=== PATIENT | female | born 1990 ===

== ENCOUNTER 2022-02-12 12:43 | Outpatient (CLI) | payer OTHER, SELFPAY ==
--- NOTE | 2022-02-12 13:00 | CRLHL7_ITS ---
For Patients: As a result of the Century Cures Act, medical imaging exams and procedure reports are released immediately into your electronic medical record. You may view this report before your referring provider. If you have questions, please contact your health care provider. INDICATION: First trimester scan, establish dates. COMPARISON: None. TECHNIQUE: Real-time polanco-scale imaging of the pelvis was performed. FINDINGS: Sonographic imaging demonstrates a single living intrauterine gestation. The embryo demonstrates a regular cardiac rate measuring 169 beats per minute. The embryo`s crown-rump length measurement of 2.4 cm corresponds to a gestational age of 9 weeks and 0 days with a sonographic due date of 09/17/2022. There is a normal-appearing yolk sac. There are no gross abnormalities noted within the embryo at this early state of development. The gestational sac has a normal appearance. There is no evidence of a perigestational hemorrhage. The amount of fluid within the sac appears appropriate for gestational age. The cervix is closed. The myometrium appears normal. Simple right ovarian cyst is present measuring 2.8 x 2.4 x 2.5 cm. The left ovary is not visualized. There are no suspicious fluid collections noted in the cul-de-sac. IMPRESSION: Single living intrauterine with sonographic gestational age 9 weeks 0 days and sonographic due date of 09/17/2022. Dictated by Ricki Pollock MD @ 02/12/2022 3:00:43 PM (Electronically Signed)
== END 2022-02-12 12:44 | disposition home or self-care (01) ==
LOC: US 12:47
PROVIDERS: Visit Provider Physician Assistant
DX: Z34.91 Encounter for supervision of normal pregnancy, unspecified, first trimester (principal); Z3A.09 9 weeks gestation of pregnancy
CPT/HCPCS: 76817

== ENCOUNTER 2022-02-12 14:57 | Outpatient (CLI) | payer OTHER, SELFPAY ==
[2022-02-12 18:12] LABS: Total Protein Urine 10 mg/dL
[2022-02-12 18:14] LABS: Creatinine Urine 48.5 mg/dL
[2022-02-12 18:15] LABS: Alanine Aminotransferase* 12 U/L (4-35); Aspartate Amino Transferase* 43 U/L (12-35); Blood Urea Nitrogen* 10 mg/dL (5-24); Creatinine* 0.5 mg/dL (0.5-1.5); Estimated Glomerular Filt Rate 129 ml/min
[2022-02-12 19:05] LABS: Hepatitis B Surface Antigen* Negative (Negative)
[2022-02-12 19:13] LABS: HIV 1/2/P24 Combo Screen* Negative (Negative)
[2022-02-12 19:22] LABS: Hepatitis C Virus Antibody* Negative (Negative)
[2022-02-12 21:00] LABS: Chlamydia DNA Amplified* NOT DETECTED (No Detected); GC DNA Amplified* NOT DETECTED (No Detected)
[2022-02-14 17:45] LABS: Rapid Plasma Reagin (RPR) Non Reactive (Non Reactive)
[2022-02-14 23:50] LABS: Rubella Antibody IgG 13.1 IU/mL
== END 2022-02-12 14:58 | disposition home or self-care (01) ==
LOC: NFLDREF 14:57
PROVIDERS: Visit Provider Physician Assistant
DX: Z34.91 Encounter for supervision of normal pregnancy, unspecified, first trimester (principal); Z3A.09 9 weeks gestation of pregnancy
CPT/HCPCS: 76817; 82565; 82570; 84156; 84450; 84460; 84520; 84550; 86592; 86703; 86762; 86803; 86850; 86900; 86901; 87086; 87340; 87491; 87591

== ENCOUNTER 2022-02-24 12:47 | Outpatient (CLI) | payer OTHER, SELFPAY ==
[2022-02-24 14:42] LABS: Total Protein Urine 12 mg/dL
[2022-02-24 14:43] LABS: Creatinine Urine 47.5 mg/dL
[2022-02-24 14:51] LABS: Collection Time Urine 24 Hours; Total Protein 24 Hour Urine 408 mg/dL; Total Volume 24 Hour Urine 3400 ml; Urine Creatinine mg/24 Hour 0 mg/Day
== END 2022-02-24 12:48 | disposition home or self-care (01) ==
PROVIDERS: Visit Provider Physician Assistant
DX: Z34.91 Encounter for supervision of normal pregnancy, unspecified, first trimester (principal)
CPT/HCPCS: 84156

== ENCOUNTER 2022-03-12 11:24 | Outpatient (CLI) | payer OTHER, SELFPAY ==
[2022-03-12 13:49] LABS: Aspartate Amino Transferase* 16 U/L (12-35)
== END 2022-03-12 11:25 | disposition home or self-care (01) ==
PROVIDERS: Visit Provider Obstetrics & Gynecology
DX: Z34.91 Encounter for supervision of normal pregnancy, unspecified, first trimester (principal); K76.0 Fatty (change of) liver, not elsewhere classified
CPT/HCPCS: 81420; 84450

== ENCOUNTER 2022-04-30 08:09 | Outpatient (CLI) | payer OTHER, SELFPAY ==
--- NOTE | 2022-04-30 08:15 | CRLHL7_ITS ---
For Patients: As a result of the Century Cures Act, medical imaging exams and procedure reports are released immediately into your electronic medical record. You may view this report before your referring provider. If you have questions, please contact your health care provider. INDICATION: Evaluate anatomy. COMPARISON: 02/12/2022 TECHNIQUE: Real time polanco scale imaging of the fetus was performed as well as color Doppler analysis of the umbilical vessels. FINDINGS: Sonographic imaging demonstrates a single living intrauterine gestation. Fetus demonstrates a regular cardiac rate of 171 beats per minute. Fetus has a vertex position. The placenta lies anteriorly without evidence of placenta previa. The edge of the placenta is located 8.7 cm from the internal cervical os. Amniotic fluid volume appears normal. Single deepest vertical pocket: 5.2 cm. The cervix is closed and measures 4.9 cm in length. The composite ultrasound gestational age is calculated at 20 weeks 1 day with an estimated sonographic due date of 09/16/2022. The estimated weight is 340 grams which lies at the 59th %. The following biometric measurements were obtained: Biparietal diameter: 4.6 cm/20 weeks 0 days 47th% Head circumference: 17.5 cm/20 weeks 0 days 42nd% Abdominal circumference: 14.7 cm/20 weeks 0 days 42nd% Femur length: 3.4 cm/20 weeks 5 days 65th% The HC/AC ratio measures: 1.19 range (1.07-1.25) On anatomic survey, there is a normal appearance of the cerebral ventricles, cavum septi pellucidi, cisterna magna and cerebellum. The nose, lips, and facial profile appear normal. The cervical, thoracic and lumbar spine are well visualized and appear normal. There is a normal four-chamber heart view and the left and right ventricular outflow tracts are difficult to visualize due to baby movement. The diaphragm and stomach appear normal. The kidneys and bladder also appear normal. There is a normal three-vessel cord and cord insertion site. The four extremities appear normal. IMPRESSION: Concordance of clinical and sonographic dating. Incomplete visualization of the LVOT and RVOT due to baby movement. Remainder of the anatomic survey is normal. Recommend short-term follow-up. Dictated by Ricki Pollock MD @ 04/30/2022 10:09:15 AM (Electronically Signed)
== END 2022-04-30 08:10 | disposition home or self-care (01) ==
LOC: US 08:09
PROVIDERS: Visit Provider Physician Assistant
DX: Z34.92 Encounter for supervision of normal pregnancy, unspecified, second trimester (principal); Z3A.20 20 weeks gestation of pregnancy
CPT/HCPCS: 76805

== ENCOUNTER 2022-05-20 08:45 | Outpatient (RCR) | payer OTHER, SELFPAY ==
--- NOTE | 2022-05-04 18:10 | OT.OPOE ---
OT Outpatient Ortho Eval OT Outpatient Ortho Eval Start: 05/04/22 16:58 Freq: Status: Active Protocol: Document 05/04/22 16:59 LCN (Rec: 05/04/22 17:28 LCN Desktop) E-signed By Estela Prado, OTR/L, CLT OT OP Ortho Eval Details Type Type Eval Complexity Low Insurance Information Insurance Information [facility] History/Precautions Current Condition/Medical Diagnosis Referring Provider Daiana Lewis PA-C Treatment Diagnosis B carpal tunnel syndrome Date of Onset 04/09/22 Medical Conditions HTN Other Conditions Pt is 20 weeks and has been having sx for the past 5 weeks. Has a history of CTS in B hands in early 2019, was considering surgery at that time, but it did resolve mostly by fall. 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 She is waking with shocks of numbness running in fingers, 2-3 night per week on alternating sides usually. Has some while bathing her 3 y/o daughter. Responds well to hot shower, will use an ice pack if she can not sleep, somewhat helpful. Splinting with [facility] wrist cock ups nightly. Not able to wear them while she uses power tools. Goniometric Comments Goniometric Comments Goniometric Comments AROM-- WR EX 55 of 70 stiffness in B hands. WR FL o -85 of 90 R (with provokation of sx) and 0-80 L. Pronation, RD and UD are WNL. Supination 0-80 of 90 B with R side sx provokation. Interface Analyst is 45# R and 26 # L German pinch is 20.5 R and 19 # L. 3 pt is 14 # R (provokation R hand) and 17# L. Durkan's at 15 sec with 4-5/ 10 intensity tingling, for R hand IF, resolves in 2 min and L hand 3-4/10 intensity ' fuzzy', similar onset, recovery. Edema Assessment Description Subjective Edema Description Tightness Additional Information Comments tight to squeeze fists tight, limit at end range of Hooked digt flexion. OT Objective Data Hand Hand Dominance Right Upper Extremity Special Tests Wrist Durkan's Test Positive Left,Positive Right Median Nerve-Carpal Tunnel Wrist Phalen Test Negative Left,Positive Right Wrist Tinel Test bilateral OT Problems Problems Problems Decreased Strength,Decreased Range of Motion,Decreased Fine Motor,Lifting,Gripping, Pinching Problems Comments Hands tire quickly while carrying heavy items for distances, chopping food, running powerl tools. Other Problems Writing,Opening Containers, Fasteners Patient Potential Excellent Assessment Assessment Assessment Given Marion's diagnosis of B carpal tunnel syndrome related to her and ? difficulty with edema, pain, ROM and strength loss of L hand/wrist/elbow , they would benefit from skilled OT to address these areas. Occupational Therapy Treatment Plan - OP Potential Rehabilitation Potential Excellent Set Goals Goals Set with Patient Yes Goals Goals In 8 weeks, pt will demonstrate:? 1) Decreased pn to <2/10 80% of the time with sustained gripping, carrying groceries, reading books and bathing her daughter. 2) I HEP for stretching, gradual strengthening and self mgmt strategies. 3) improved R talk show host strength to 40# and R 3 pt pinch to 10# with B hand pain < 1/10. 4)??Pt to be fit with functional bracing (for wrist stabilization) and use adaptive strategies to protect joint integrity to support less pain with ADL. Target Date 07/03/22 Progress set Treatment Plan Treatment Plan Evaluation,Edema Control, Iontophoresis,Joint Mobilization,Manual Therapy, Splinting,Ultrasound, Therapeutic Exercise,Self-Care /Home Management,Education Expected Frequency 1-2x Week Expected Duration 6-8 Weeks Certification Certification I Certify That: Therapy Services Provided, Therapy Plan Established, Therapy Plan Reviewed
== END 2022-09-11 17:46 | disposition home or self-care (01) ==
PROVIDERS: PCP Physician Assistant; Visit Provider Physician Assistant
DX: G56.00 Carpal tunnel syndrome, unspecified upper limb (principal); Z51.89 Encounter for other specified aftercare
CPT/HCPCS: 97033; 97035; 97110; 97140; 97165; 97535; X5282

== ENCOUNTER 2022-05-28 08:08 | Outpatient (CLI) | payer OTHER, SELFPAY ==
--- NOTE | 2022-05-28 08:15 | CRLHL7_ITS ---
For Patients: As a result of the Century Cures Act, medical imaging exams and procedure reports are released immediately into your electronic medical record. You may view this report before your referring provider. If you have questions, please contact your health care provider. INDICATION: heart views not well visualized previously COMPARISON: 04/30/2022 TECHNIQUE: Real time polanco scale imaging of the fetus was performed. FINDINGS: Sonographic imaging demonstrates a single living intrauterine gestation. Fetus demonstrates a regular cardiac rate of 165 beats per minute. Fetus has a vertex position. The placenta lies anteriorly. Amniotic fluid volume appears normal. Single deepest vertical pocket: 5.7 cm. There is a normal four-chamber heart view and the left and right ventricular outflow tracts appear normal. IMPRESSION: Normal heart structures. Dictated by Ricki Pollock MD @ 05/28/2022 9:01:27 AM (Electronically Signed)
== END 2022-05-28 08:09 | disposition home or self-care (01) ==
LOC: US 08:09
PROVIDERS: PCP Physician Assistant; Visit Provider Obstetrics & Gynecology
DX: Z34.82 Encounter for supervision of other normal pregnancy, second trimester (principal); Z3A.24 24 weeks gestation of pregnancy
CPT/HCPCS: 76816

== ENCOUNTER 2022-06-25 08:59 | Outpatient (CLI) | payer OTHER, SELFPAY ==
[2022-06-26 22:46] LABS: Rapid Plasma Reagin (RPR) Non Reactive (Non Reactive)
== END 2022-06-25 09:00 | disposition home or self-care (01) ==
LOC: NFLDREF 08:59
PROVIDERS: PCP Physician Assistant; Visit Provider Obstetrics & Gynecology
DX: Z34.90 Encounter for supervision of normal pregnancy, unspecified, unspecified trimester (principal)
CPT/HCPCS: 86592

== ENCOUNTER 2022-07-02 09:24 | Outpatient (CLI) | payer OTHER, SELFPAY ==
[2022-07-02 08:22] LABS: Glucose Fasting Check 85 mg/dl (60-115)
[2022-07-02 12:26] LABS: Glucose GTT-Gestational 3 Hr 121 mg/dl (70-140)
[2022-07-02 12:26] LABS: Glucose 1 Hour Gest 163 mg/dl (70-180)
== END 2022-07-02 09:25 | disposition home or self-care (01) ==
PROVIDERS: PCP Physician Assistant; Visit Provider Obstetrics & Gynecology
DX: R73.09 Other abnormal glucose (principal)
CPT/HCPCS: 82951; 82952

== ENCOUNTER 2022-07-08 09:50 | Outpatient (CLI) | payer OTHER, SELFPAY ==
--- NOTE | 2022-07-08 09:45 | CRLHL7_ITS ---
For Patients: As a result of the Century Cures Act, medical imaging exams and procedure reports are released immediately into your electronic medical record. You may view this report before your referring provider. If you have questions, please contact your health care provider. INDICATION: Third trimester scan, evaluate growth. Chronic Hypertension COMPARISON: 05/28/2022, 04/30/2022 TECHNIQUE: Real time polanco scale imaging of the fetus was performed. FINDINGS: Sonographic imaging demonstrates a single living intrauterine gestation. Fetus demonstrates a regular cardiac rate of 135 beats per minute. Fetus has a vertex position. The placenta lies right anterior. Amniotic fluid volume appears normal and there is a single deepest vertical pocket: 6.1 cm. The estimated weight is 1761gm which lies at the 88th %. On the prior OB ultrasound exam dated 04/30/2022 the estimated weight was at the 59th%. BPD 92nd percentile. HC 90th percentile. AC 90th percentile. FL 51st percentile. The HC/AC ratio measures 1.07 range (0.96-1.15). IMPRESSION: Sonographic gestational age 31 weeks 5 days and sonographic due date of 09/04/2022. Sonographic age is 13 days ahead of the clinical age. Estimated weight 88th percentile. Abdominal circumference 90th percentile. Dictated by Ricki Pollock MD @ 07/08/2022 10:49:02 AM (Electronically Signed)
== END 2022-07-08 09:51 | disposition home or self-care (01) ==
LOC: US 09:51
PROVIDERS: PCP Physician Assistant; Visit Provider Obstetrics & Gynecology
DX: O10.919 Unspecified pre-existing hypertension complicating pregnancy, unspecified trimester (principal)
CPT/HCPCS: 76816

== ENCOUNTER 2022-07-16 09:44 | Outpatient (CLI) | payer OTHER, SELFPAY ==
--- NOTE | 2022-07-16 09:45 | CRLHL7_ITS ---
For Patients: As a result of the Century Cures Act, medical imaging exams and procedure reports are released immediately into your electronic medical record. You may view this report before your referring provider. If you have questions, please contact your health care provider. INDICATION: chronic hypertension COMPARISON: 07/08/2022 TECHNIQUE: Real time polanco scale imaging of the fetus was performed. Without non-stress testing. FINDINGS: Sonographic imaging demonstrates a single living intrauterine gestation. Fetus demonstrates a regular cardiac rate of 133 beats per minute. Fetus has a vertex position. The amniotic fluid volume appears normal and there is a single deepest pocket measurement of 4.2 cm. The fetus was active and demonstrated normal breathing movements. There was normal flexion and extension of the trunk and extremities. IMPRESSION: Normal biophysical profile score of 8 out of 8. Dictated by Ricki Pollock MD @ 07/16/2022 10:40:56 AM (Electronically Signed)
== END 2022-07-16 09:45 | disposition home or self-care (01) ==
LOC: US 09:45
PROVIDERS: PCP Physician Assistant; Visit Provider Obstetrics & Gynecology
DX: O10.913 Unspecified pre-existing hypertension complicating pregnancy, third trimester (principal); Z3A.31 31 weeks gestation of pregnancy
CPT/HCPCS: 76819

== ENCOUNTER 2022-07-23 09:45 | Outpatient (CLI) | payer OTHER, SELFPAY ==
--- NOTE | 2022-07-23 09:45 | US_ITS ---
Final Report Patient: JUNIE BOWMAN Facility:?[facility] Patient ID:?[id number] Site Patient ID:?[id number]. Site :?[id number] Study:?US OB Pelvis BPP-07/23/2022 10:22:52 AM Ordering Physician:?UNKNOWN UNKNOWN Final Report: INDICATION: female. Hypertension. TECHNIQUE: Real-time polanco scale imaging of the fetus was performed. Without nonstress testing. COMPARISON: July 16, 2022. FINDINGS: Sonographic imaging demonstrates a single living intrauterine gestation. The fetus demonstrates a regular cardiac rate of 126 beats per minute. The fetus has a vertex position. The amniotic fluid volume appears normal and there is a single deepest pocket measurement of 6.3 cm. The fetus was active and demonstrated normal breathing movements. There was normal flexion and extension of the trunk and extremities. Anterior placenta. IMPRESSION: Normal biophysical profile score of 8/8. Dictated by Angelo Dodson MD @ 07/23/2022 10:28:34 AM (Electronic Signature)
== END 2022-07-23 09:46 | disposition home or self-care (01) ==
LOC: US 09:46
PROVIDERS: PCP Physician Assistant; Visit Provider Obstetrics & Gynecology
DX: O10.913 Unspecified pre-existing hypertension complicating pregnancy, third trimester (principal); Z3A.31 31 weeks gestation of pregnancy
CPT/HCPCS: 76819

== ENCOUNTER 2022-07-30 09:34 | Outpatient (CLI) | payer OTHER, SELFPAY ==
--- NOTE | 2022-07-30 09:45 | CRLHL7_ITS ---
For Patients: As a result of the Century Cures Act, medical imaging exams and procedure reports are released immediately into your electronic medical record. You may view this report before your referring provider. If you have questions, please contact your health care provider. INDICATION: Hypertension COMPARISON: 07/23/2022 TECHNIQUE: Real time polanco scale imaging of the fetus was performed. Without non-stress testing. FINDINGS: Sonographic imaging demonstrates a single living intrauterine gestation. Fetus demonstrates a regular cardiac rate of 157 beats per minute. Fetus has a vertex position. The amniotic fluid volume appears normal and there is a single deepest pocket measurement of 4.6 cm. The fetus was active and demonstrated normal breathing movements. There was normal flexion and extension of the trunk and extremities. IMPRESSION: Normal biophysical profile score of 8 out of 8. Dictated by Ricki Pollock MD @ 07/30/2022 2:26:22 PM (Electronically Signed)
== END 2022-07-30 09:35 | disposition home or self-care (01) ==
PROVIDERS: PCP Physician Assistant; Visit Provider Obstetrics & Gynecology
DX: O10.919 Unspecified pre-existing hypertension complicating pregnancy, unspecified trimester (principal)
CPT/HCPCS: 76819

== ENCOUNTER 2022-08-03 09:49 | Outpatient (CLI) | payer OTHER, SELFPAY ==
[2022-08-03 10:16] VITALS: PULSE 95; RESP 18; TEMP 36.9; O2SAT 99
[2022-08-03 10:17] VITALS: BP 120/68; PULSE 90
[2022-08-03 10:33] LABS: Appearance Urine Clear (Clear); Bilirubin Urine Negative (Negative); Blood Urine Negative (Negative); Color Urine Yellow (Yellow); Glucose Urine Negative (Negative); Ketones Urine 4+ (Negative); Leukocyte Esterase Urine Negative (Negative); Nitrite Urine Negative (Negative); Protein Urine Negative (Negative); Specific Gravity Urine 1.025 (1.000-1.030); Urobilinogen Urine 0.2 (0.2-1.0); pH Urine 6.5 (5.0-8.5)
[2022-08-03] MEDS: ONDANSETRON 2 MG/ML inj 4 MG IVP (11:23)
[2022-08-03] MEDS: LACTATED RINGERS 1000 ML 1,000 ML IV (11:24)
[2022-08-03] MEDS: ACETAMINOPHEN 500 MG TABLET 1000 MG PO (11:25)
[2022-08-03] MEDS: GI COCKTAIL (VISC LIDO/ANTACID) 30 ML PO (11:31)
--- NOTE | 2022-08-03 13:29 | PC.OBNST ---
NST Note NST Note Start: 08/03/22 09:54 Freq: ONCE Status: Active Protocol: Document 08/03/22 12:24 SONYA (Rec: 08/03/22 13:29 SONYA [id number]) NST Note 5 Para (# of births) 2 EDC 09/17/22 Gestational Age In Weeks & Days 33 Weeks & 4 Days High Risk Factors High Blood Pressure - Preexisting Patient Presented with Complaint(s) of Pain,Nausea and vomiting If Pain, describe location Occasional upper abdominal pain Reactive Yes Appropriate for Gestational Age Yes RN Jackelyn Zepeda, RNC Date 08/03/22 Reactive Yes Appropriate for Gestational Age Yes HECTOR Thomas RN Date 08/03/22 OB NST charge Yes Complete NST Note via Write Note Yes The provider's electronic signature indicates the NST is reactive/appropriate for gestational age. *Note to provider: If an addendum is required, open the patient's chart and click on the note under the Nurse/Allied Health tab.
== END 2022-08-03 13:24 | disposition home or self-care (01) ==
LOC: OB OUT 09:50 → OB 09:51
PROVIDERS: Advanced Practice Midwife; PCP Obstetrics & Gynecology; Visit Provider Obstetrics & Gynecology
DX: O10.913 Unspecified pre-existing hypertension complicating pregnancy, third trimester (principal); Z3A.33 33 weeks gestation of pregnancy
CPT/HCPCS: 59025; 81003; 99213; A9270; J2405; J7120

== ENCOUNTER 2022-08-06 09:39 | Outpatient (CLI) | payer OTHER, SELFPAY ==
--- NOTE | 2022-08-06 09:45 | CRLHL7_ITS ---
For Patients: As a result of the Century Cures Act, medical imaging exams and procedure reports are released immediately into your electronic medical record. You may view this report before your referring provider. If you have questions, please contact your health care provider. INDICATION: Hypertension TECHNIQUE: Real time polanco scale imaging of the fetus was performed. COMPARISON: 07/30/2022 FINDINGS: Sonographic imaging demonstrates a single living intrauterine gestation. Fetus demonstrates a regular cardiac rate of 150 beats per minute. Fetus has a vertex position. The placenta lies anteriorly. Amniotic fluid volume appears normal and there is a single deepest pocket of 5.4 cm. The estimated weight is 2410gm which lies at the 54th %. On the prior OB ultrasound dated 07/08/2022 the estimated weight was at the 88th percentile. BPD 75th percentile. HC 59th percentile. AC 69th percentile. FL 23rd percentile. The fetus was active and demonstrated normal breathing movements. There was normal flexion and extension of the trunk and extremities. IMPRESSION: Normal biophysical profile score 8/8. Sonographic gestational age 34 weeks 5 days and sonographic due date of 09/12/2022. Sonographic age 5 days ahead of the clinical age. Estimated weight 54th percentile. Abdominal circumference 69th percentile for Dictated by Ricki Pollock MD @ 08/06/2022 12:09:21 PM (Electronically Signed)
== END 2022-08-06 09:40 | disposition home or self-care (01) ==
PROVIDERS: PCP Obstetrics & Gynecology; Visit Provider Obstetrics & Gynecology
DX: O10.919 Unspecified pre-existing hypertension complicating pregnancy, unspecified trimester (principal)
CPT/HCPCS: 76816; 76819

== ENCOUNTER 2022-08-13 09:44 | Outpatient (CLI) | payer OTHER, SELFPAY ==
--- NOTE | 2022-08-13 09:45 | CRLHL7_ITS ---
For Patients: As a result of the Century Cures Act, medical imaging exams and procedure reports are released immediately into your electronic medical record. You may view this report before your referring provider. If you have questions, please contact your health care provider. INDICATION: BPP-HYPERTENSION COMPARISON: 08/06/2022 TECHNIQUE: Real time polanco scale imaging of the fetus was performed. Without non-stress testing. FINDINGS: Sonographic imaging demonstrates a single living intrauterine gestation. Fetus demonstrates a regular cardiac rate of 163 beats per minute. Fetus has a vertex position. The amniotic fluid volume appears normal and there is a single deepest pocket measurement of 3.9 cm. The fetus was active and demonstrated normal breathing movements. There was normal flexion and extension of the trunk and extremities. IMPRESSION: Normal biophysical profile score of 8 out of 8. Dictated by Ricki Pollock MD @ 08/13/2022 10:58:33 AM (Electronically Signed)
== END 2022-08-13 09:45 | disposition home or self-care (01) ==
LOC: US 09:44
PROVIDERS: Visit Provider Obstetrics & Gynecology
DX: O10.919 Unspecified pre-existing hypertension complicating pregnancy, unspecified trimester (principal); R73.09 Other abnormal glucose
CPT/HCPCS: 76819

== ENCOUNTER 2022-08-24 15:39 | Outpatient (CLI) | payer OTHER, SELFPAY ==
[2022-08-24 17:18] LABS: Alanine Aminotransferase* 17 U/L (4-35); Aspartate Amino Transferase* 22 U/L (12-35); Blood Urea Nitrogen* 13 mg/dL (5-24); Creatinine* 0.5 mg/dL (0.5-1.5); Estimated Glomerular Filt Rate 129 ml/min
[2022-08-24 17:31] LABS: Total Protein Urine 13 mg/dL
[2022-08-24 17:32] LABS: Creatinine Urine 24.3 mg/dL
[2022-08-25 13:43] LABS: Strep B DNA Probe NEGATIVE (Negative)
[2022-08-25 13:45] LABS: Strep B Pen/Amox Allergy No
== END 2022-08-24 15:40 | disposition home or self-care (01) ==
PROVIDERS: Visit Provider Obstetrics & Gynecology
DX: O10.919 Unspecified pre-existing hypertension complicating pregnancy, unspecified trimester (principal)
CPT/HCPCS: 82565; 82570; 84156; 84450; 84460; 84520; 87081; 87653

== ENCOUNTER 2022-08-24 15:58 | Outpatient (CLI) | payer OTHER, SELFPAY ==
--- NOTE | 2022-08-24 16:00 | CRLHL7_ITS ---
For Patients: As a result of the Century Cures Act, medical imaging exams and procedure reports are released immediately into your electronic medical record. You may view this report before your referring provider. If you have questions, please contact your health care provider. INDICATION: 32 year-old female. Hypertension. Evaluate well-being. COMPARISON: August 13, 2022. TECHNIQUE: Real time polanco scale imaging of the fetus was performed. Without non-stress testing. FINDINGS: Sonographic imaging demonstrates a single living intrauterine gestation. Fetus demonstrates a regular cardiac rate of 139 beats per minute. Fetus has a vertex orientation. Anterior and right lateral placenta. The amniotic fluid volume appears normal and there is a single deepest pocket measurement of 6.2 cm. The fetus was active and demonstrated normal breathing movements. There was normal flexion and extension of the trunk and extremities. IMPRESSION: Normal biophysical profile score of 8 out of 8. Dictated by Angelo Dodson MD @ 08/24/2022 9:41:54 PM (Electronically Signed)
== END 2022-08-24 15:59 | disposition home or self-care (01) ==
LOC: US 15:59
PROVIDERS: Visit Provider Obstetrics & Gynecology
DX: O10.919 Unspecified pre-existing hypertension complicating pregnancy, unspecified trimester (principal)
CPT/HCPCS: 76819

== ENCOUNTER 2022-08-26 09:39 | Outpatient (CLI) | payer OTHER, SELFPAY ==
--- NOTE | 2022-08-26 09:45 | CRLHL7_ITS ---
For Patients: As a result of the Century Cures Act, medical imaging exams and procedure reports are released immediately into your electronic medical record. You may view this report before your referring provider. If you have questions, please contact your health care provider. INDICATION: 32 year-old female. Hypertension. COMPARISON: August 24, 2022. TECHNIQUE: Real time polanco scale imaging of the fetus was performed. Without non-stress testing. FINDINGS: Sonographic imaging demonstrates a single living intrauterine gestation. Fetus demonstrates a regular cardiac rate of 141 beats per minute. Fetus has a vertex orientation. The amniotic fluid volume appears normal and there is a single deepest pocket measurement of 6.2 cm. The fetus was active and demonstrated normal breathing movements. There was normal flexion and extension of the trunk and extremities. IMPRESSION: Normal biophysical profile score of 8 out of 8. Dictated by Angelo Dosdon MD @ 08/26/2022 11:06:25 AM (Electronically Signed)
== END 2022-08-26 09:40 | disposition home or self-care (01) ==
PROVIDERS: PCP Obstetrics & Gynecology; Visit Provider Obstetrics & Gynecology
DX: O16.9 Unspecified maternal hypertension, unspecified trimester (principal)
CPT/HCPCS: 76819

== ENCOUNTER 2022-09-03 09:37 | Outpatient (CLI) | payer OTHER, SELFPAY ==
--- NOTE | 2022-09-03 09:45 | CRLHL7_ITS ---
For Patients: As a result of the Century Cures Act, medical imaging exams and procedure reports are released immediately into your electronic medical record. You may view this report before your referring provider. If you have questions, please contact your health care provider. INDICATION: HYPERTENSION TECHNIQUE: Real time polanco scale imaging of the fetus was performed. COMPARISON: 08/26/2022 FINDINGS: Sonographic imaging demonstrates a single living intrauterine gestation. Fetus demonstrates a regular cardiac rate of 165 beats per minute. Fetus has a vertex position. The placenta lies right anterior. Amniotic fluid volume appears normal and there is a single deepest pocket of 5.3 cm. The estimated weight is 3547gm which lies at the 78th %. On the prior OB ultrasound dated 08/06/2022 the estimated weight was at the 54th percentile. BPD 72nd percentile. HC 58th percentile. AC 93rd percentile. FL 29th percentile. The fetus was active and demonstrated normal breathing movements. There was normal flexion and extension of the trunk and extremities. IMPRESSION: Normal biophysical profile score 8/8. Sonographic gestational age 38 weeks 3 days and sonographic due date 09/14/2022. Good correlation with dates and normal interval growth. Estimated weight 78th percentile. Abdominal circumference 93rd percentile. Dictated by Ricki Pollock MD @ 09/03/2022 11:58:26 AM (Electronically Signed)
== END 2022-09-03 09:38 | disposition home or self-care (01) ==
PROVIDERS: Visit Provider Obstetrics & Gynecology
DX: O10.913 Unspecified pre-existing hypertension complicating pregnancy, third trimester (principal); Z3A.38 38 weeks gestation of pregnancy
CPT/HCPCS: 76816; 76819

== ENCOUNTER 2022-09-07 06:30 | Outpatient (CLI) | payer OTHER, SELFPAY | END 2022-09-07 06:31 | disposition home or self-care (01) | LOC: NFLDREF 09-08 09:53 | PROVIDERS: Visit Provider Obstetrics & Gynecology | DX: O10.913 Unspecified pre-existing hypertension complicating pregnancy, third trimester (principal); Z3A.39 39 weeks gestation of pregnancy | CPT/HCPCS: 82570; 84156 ==

== ENCOUNTER 2022-09-10 05:06 | Inpatient (IN) | payer OTHER, SELFPAY ==
[2022-09-10] VITALS (65 sets, daily range): BP systolic 100–125; BP diastolic 51–81; PULSE 66–107; RESP 16–18; TEMP 35.4–37; O2SAT 86–100; BMI 44.2
[2022-09-10 06:31] LABS: Basophils Absolute Auto 0.01 K/uL (0.00-0.30); Basophils Percent Auto 0.1 % (0.0-3.0); Eosinophils Absolute Auto 0.12 K/uL (0.00-0.50); Eosinophils Percent Auto 1.4 % (0.0-7.0); Hematocrit 33.9 % (33.0-51.0); Hemoglobin* 11.4 gm/dL (12.0-16.0); Immature Granulocytes Abs Auto 0.04 K/uL (0.00-0.30); Immature Granulocytes Pct Auto 0.5 %; Lymphocytes Absolute Auto 1.78 K/uL (0.90-2.90); Lymphocytes Percent Auto 21.3 % (20-44); Mean Corpuscular HGB Conc 34 gm/dL (32-36); Mean Corpuscular Hemoglobin 28 pg (26-34); Mean Corpuscular Volume 84 fL (80-100); Monocytes Percent Auto 6.5 % (0.0-11.0); Neutrophils Absolute Auto 5.86 K/uL (1.7-7.0); Neutrophils Percent Auto 70.2 % (42.0-72.0); Platelet Count* 229 K/uL (140-440); RDW Coefficient of Variation % 13.8 % (11.5-15.5); Red Blood Count 4.04 m/uL (4.00-5.20); White Blood Count* 8.35 K/uL (4.50-11.00)
[2022-09-10] MEDS: LACTATED RINGERS 1000 ML 1,000 ML 125 ML IV (06:32)
[2022-09-10 06:36] LABS: Slide Review Reflex No
[2022-09-10 06:45] LABS: SARS PCR* Negative SARS-CoV-2 (Negative)
--- NOTE | 2022-09-10 08:40 | W.ANESCHARGE ---
Anesthesia Charges Start Date/Time Anesthesia Start Date: 09/10/22 Anesthesia Start Time: 08:59 Stop Date/Time Anesthesia Stop Date: 09/10/22 Anesthesia Stop Time: 10:47
--- NOTE | 2022-09-10 08:52 | P.PCN_ITS ---
Procedure Note Time Seen by Provider: 08:52 Date Seen: 09/10/22 Date of procedure: 09/10/22 Will [facility] bill your pro fee for this procedure?: Yes Procedure: Preoperative diagnosis: 32-year-old 3 para 2001 at 39 and 0/7 weeks. * Scheduled repeat low transverse section. * Undesired fertility * Chronic hypertension on labetalol 200mg BID Postoperative diagnosis: Same Procedure: Repeat low-transverse section. Bilateral Salpingectomy Anesthesia: Spinal Surgeon: Nicole Mccarthy MD Dining Room Supervisor: Rosie Murray MD Quantitative blood loss: 925 mL IVF: 2000 mL UOP: 300 mL Drain(s): Cortez and Bakri to gravity Specimen: Placenta, Right and left fallopian tubes to pathology Findings: A live female was delivered from the direct OA position at 9:38 a.m. Apgars were 8 at 1 min and 9 at 5 min, respectively. Infant weight: 7 lb 13 oz. Nuchal cord(s): Yes: Single, loose nuchal cord reduced prior to delivery of the 's shoulders at the surgical field. The placenta was delivered spontaneous and complete at 9:40 a.m. Amniotic fluid: Clear. Normal uterus, fallopian tubes and ovaries were noted. Other findings: 1. Lower uterine segment was very thin. 2. Excessive uterine atony after delivery of the placenta treated with: 40 units Pitocin in 1 L IV fluid, Hemabate 0.25 mg IM x1, TXA 1 g IV x1, Bakri balloon w/ 200mL placed at 09:34am and 800mg rectal cytotec(at the end of the procedure. Procedure: Marion was taken to the OR where spinal anesthetic was found be adequate. A Cortez catheter was placed. The patient was then placed in the dorsal supine position with a leftward tilt. She was then prepped and draped in a normal sterile manner. A Pfannenstiel skin incision was made and carried through sharply to the underlying layer of fascia. Fascia was incised in the midline and this incision carried laterally with Banks scissors. The superior aspect of fascial incision was grasped with Alexnadra clamps, tented up, and the rectus muscles dissected off with a combination of blunt and sharp dissection. The inferior aspect of the fascial incision was not dissected off the rectus muscles. The rectus muscles were in the midline. The peritoneum was entered bluntly. This opening was extended sharply in layers. An Freddy-O self-retaining retractor was placed. A bladder flap was not created. Uterus was incised in a low transverse manner in the midline. This incision carried laterally with blunt pressure on the inferior and superior aspects of the uterine incision. The amniotic sac was ruptured. The 's head and body was delivered atraumatically. The was shown to the patient and her support person, then handed to waiting nursing staff. The placenta was delivered spontaneously. The uterus was cleared of clots and debris. Uterine atony was identified and treated with the above noted utero-tonics and Bakri balloon placed. The uterine incision was re-approximated with the uterus in vivo. The 1st layer using 0-Vicryl in a running, locked manner. The 2nd layer using 0- Monocryl in a running, vertical, imbricating layer. Additional sutures needed for hemostasis: Yes: 3 sutures of 2-0 chromic in a [id number] manner. Attention was then turned to performing the bilateral salpingectomy. The uterus was exteriorized to visualize fallopian tubes and ovaries.The right fallopian tube was identified, grasped with 2 Giovany clamps and followed to the fimbriated end of the fallopian tube. The hand-held LigaSure dissecting forceps was used to remove the fallopian tube from the cornua and broad ligament by sequential pedicles. The pedicles were started at the fimbriated end of the tube and extended toward the cornua. The fallopian tube was amputated from the cornual a and sent to pathology. Hemostasis of the pedicles was obtained using bipolar cautery and a DeBakey forceps. The left fallopian tube was then identified, grasped with 2 Giovany clamps and removed in the same manner as the right fallopian tube. All pedicles were visualized and hemostasis obtained using bipolar cautery with a DeBakey clamp. The uterine incision was reinspected and noted to be hemostatic. Varun was applied to the uterine incision and excellent hemostasis was confirmed. The Freddy retractor was removed. The rectus muscles were not reapproximated. The rectus muscles were then closely inspected to verify hemostasis. Hemostasis was obtained with bipolar cautery. The fascia was then reapproximated using 0-Maxon loop in a running manner. The subcutaneous tissue was then irrigated with saline and hemostasis obtained with bipolar cautery. The subcutaneous tissue was reapproximated using 3-0 plain gut interrupted sutures in 2 layers. The skin was reapproximated using 4-0 Monocryl in a running subcuticular manner. A silver-containing dressing was applied. The patient tolerated this procedure well. Sponge, lap and instrument counts were correct x2 active to the procedure. Patient was taken to the recovery area in stable condition. The patient received 3 g of IV Ancef prior to skin incision. Surgeon: Nicole Mccarthy MD
[2022-09-10] MEDS: CEFAZOLIN 3 GM in 0.9 % SODIUM CHLORIDE Mini-bag 100 ML IVPB (09:10)
[2022-09-10] MEDS: KETOROLAC 30 MG/ML inj IVP ×3 (10:30→22:53)
--- NOTE | 2022-09-10 10:52 | W.PM.NB ---
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 Images saved: Yes Medications given in 5ml increments after negative aspiration: Marcaine %: 0.25 mL: 30 Needle gauge: 20 and Exparel mL: 10 Patient tolerated procedure well: Yes Additional comments: Needle noted adjacent to nerve Block Charges Block Charge (with Pro Fee): TAP Bilateral Use of Ultrasound Machine for Block: Yes- US Guidance/pain block
--- NOTE | 2022-09-10 11:25 | W.ANESCHARGE ---
Anesthesia Charges Start Date/Time Anesthesia Start Date: 09/10/22 Anesthesia Start Time: 08:59 Stop Date/Time Anesthesia Stop Date: 09/10/22 Anesthesia Stop Time: 10:47
[2022-09-10] MEDS: OXYTOCIN 10 UNIT/ML INJ IM ×2 (11:40→11:41)
[2022-09-10] MEDS: LABETALOL HCL 100 MG TABLET 200 MG PO (20:59)
[2022-09-10] MEDS: LANOLIN CREAM 1 APPLIC TOPICAL (21:03)
[2022-09-10] MEDS: TRANEXAMIC ACID 100 MG/ML INJ 1000 MG IV (21:50)
[2022-09-10] MEDS: SODIUM CHLORIDE 0.9 % (FLUSH) 10 ML SYRINGE IVF (22:57)
[2022-09-11] VITALS (23 sets, daily range): BP systolic 90–128; BP diastolic 48–80; PULSE 82–98; RESP 16–20; TEMP 36.4–37.1; O2SAT 97–100
[2022-09-11] MEDS: KETOROLAC 30 MG/ML inj IVP ×3 (04:58→17:23)
[2022-09-11 07:18] LABS: Hemoglobin* 6.3 gm/dL (12.0-16.0)
[2022-09-11] MEDS: ACETAMINOPHEN 500 MG TABLET 1000 MG PO (09:51)
--- NOTE | 2022-09-11 11:25 | PM.OBPNCS1 ---
OB - PN: A/P Plan Plan: routine postop care Comments: Assessment/Plan G 5 P 3 status post repeat complicated by PP hemorrhage.. 1. ?Continue route PP cares 2. ?. ?May see if desired 3. ?Anticipate discharge home tomorrow or the following day per pt preference 4. ?Acute anemia. ?Hgb 6.3. -Mild dizziness with ambulation -order given to transfuse 2 units 5. Chronic hypertension -BP low this am. Labetalol held. Will continue to monitor and reassess. Plan to give if BP becomes elevated. OB - PN: Subj Subjective Time Seen by Provider: 11:25 Date Seen: 09/11/22 Interval history: Marion is a 32 y.o. who was admitted to [facility] for a repeat and chronic hypertension. ?She had a complicated by a PP hemorrhage. A bakri was placed, which was removed last night. ? Patient comments: pain well controlled Thorofare status: and doing well Narrative: The patient feels well. ?The pain is well controlled with current medications. ?She has no new complaints. ?She is breast feeding and reports she is struggling a little bit. Has worked with this morning.? the patient has done well.? Vitals have been stable.? Her BP was low this AM, and her labetalol was held. She has remained afebrile.? Has a good appetite, is tolerating a general diet. ?She is voiding without difficulty.? She is passing gas and has not had a bowel movement.? She is ambulating. This morning she denied any dizziness, but now states she has a small amount. Denies feeling like she will pass out though.? Her hgb was 6.3 this AM, and she has blood currently transfusing. Has Small amount of rubra lochia. OB - PN: Obj Exam Physical Exam: Vital signs: Temp Pulse Resp BP Pulse Ox O2 Del Method 98.5 F 95 18 120/77 97 09/11/22 10:45 09/11/22 10:45 09/11/22 10:45 09/11/22 10:45 09/11/22 10:45 09/11/22 07:50 Narrative: VSS. Afebrile GENERAL APPEARANCE: ?normal affect, alert, no distress MOOD: ?appropriate HEENT: normocephalic, neck supple, full ROM CHEST: ?Symmetrical chest wall movement. ?Normal respiratory effort. ?Clear to auscultation HEART: ?regular rate and rhythm ABDOMEN: ?soft, non-tender. Uterine fundus is firm, 2 above Umbilicus, Midline and is appropriate for the stage of recovery. ?Bowel sounds present. EXTREMITIES: ?normal and trace edema SKIN: warm, dry. Dressing on, clean/dry/intact. No signs of infection noted. Urinary Catheter Management: Urethral: Cath placed during this visit: yes, but has since been removed by the nurse Reason for continuing: surgical procedure Insertion date: 09/10/22 Removal date: 09/11/22 Removal time: 02:00 OB - PN: Obj Data Labs Labs: Laboratory Results - last 24 hr 09/10/22 09/11/22 06:15 07:07 Hgb 6.3 L* Blood Type O Positive Antibody Screen NEGATIVE Crossmatch (AHG) See Detail
[2022-09-11] MEDS: DOCUSATE SODIUM 100 MG CAPSULE PO (12:05)
[2022-09-11 18:02] LABS: Hemoglobin* 9.2 gm/dL (12.0-16.0)
[2022-09-11] MEDS: IBUPROFEN 600 MG TABLET PO (23:30)
[2022-09-12 04:00] VITALS: BP 122/81; PULSE 89; RESP 18; TEMP 37; O2SAT 98
[2022-09-12 07:28] VITALS: BP 110/73; PULSE 92; RESP 16; TEMP 36.7; O2SAT 98
[2022-09-12] MEDS: ACETAMINOPHEN 500 MG TABLET 1000 MG PO (07:41)
--- NOTE | 2022-09-12 09:00 | PM.OBDSCS1 ---
DS: Providers Provider Time Seen by Provider: 09:43 Date Seen: 09/12/22 Date of admission: 09/10/22 05:06 Primary care physician: Not a Local Provider Admitting Clinician: Nicole Mccarthy MD Attending Physician on discharge: Nicole Mccarthy MD Date of Discharge: 09/12/22 DS: Diagnosis Discharge Diagnosis (1) Sterilization: Status: Acute Problem details: Bilateral salpingectomy during her 3rd . (2) Status post repeat low transverse section: Status: Acute Problem details: 39w0d. Girl. Mindy. (3) Chronic hypertension affecting : Status: Acute (4) Steatosis of liver: Status: Acute (5) Obesity with body mass index (BMI) of 30.0 to 39.9: Status: Acute Exam Narrative: Exam Narrative: Physical exam: General: No acute distress Psych: Alert and oriented x3, full affect HEENT: Normocephalic, atraumatic Heart: Regular rate and rhythm, no murmur rub or gallop Lungs: Clear to auscultation bilaterally Abdomen: Normoactive bowel sounds, soft, no tenderness, rebound, or guarding. Silver dressing in place and intact. Skin: No lesions or rashes Breasts: No nodules or masses, no nipple discharge, no axillary adenopathy Lower extremities: No edema or erythema Pelvic exam: scant lochia Const: Vital Signs, click to edit/add: Vital Signs - 24 hr 09/11/22 09:37 09/11/22 09:05 09/11/22 10:00 Temperature 98.5 F 97.7 F Pulse Rate 90 90 Pulse Rate [Pulse Oximeter] Respiratory Rate 18 18 18 Blood Pressure 120/72 111/69 Blood Pressure [Ri ght Arm] Pulse Oximetry 99 98 Oxygen Delivery Me thod 09/11/22 10:45 09/11/22 11:39 09/11/22 11:42 Temperature 98.5 F 98.6 F 98.6 F Pulse Rate 95 98 95 Pulse Rate [Pulse Oximeter] Respiratory Rate 18 18 18 Blood Pressure 120/77 123/70 123/70 Blood Pressure [Ri ght Arm] Pulse Oximetry 97 98 98 Oxygen Delivery Me thod 09/11/22 12:01 09/11/22 12:46 09/11/22 13:22 Temperature 98.8 F 98.4 F 98.4 F Pulse Rate 98 97 87 Pulse Rate [Pulse Oximeter] Respiratory Rate 18 18 18 Blood Pressure 118/73 107/67 92/60 Blood Pressure [Ri ght Arm] Pulse Oximetry 100 97 98 Oxygen Delivery Me thod 09/11/22 15:28 09/11/22 20:00 09/11/22 23:30 Temperature 98.2 F 98.2 F 98.6 F Pulse Rate Pulse Rate [Pulse Oximeter] 90 88 92 Respiratory Rate 18 20 18 Blood Pressure Blood Pressure [Ri ght Arm] 128/80 126/75 127/79 Pulse Oximetry 98 97 98 Oxygen Delivery Me thod Room Air Room Air Room Air 09/12/22 04:00 09/12/22 07:28 Temperature 98.6 F 98.1 F Pulse Rate Pulse Rate [Pulse Oximeter] 89 92 Respiratory Rate 18 16 Blood Pressure Blood Pressure [Ri ght Arm] 122/81 110/73 Pulse Oximetry 98 98 Oxygen Delivery Me thod Room Air Room Air DS: Data Data Completed and Pending Labs on day of discharge: Labs from last 24 hours 09/11/22 09/10/22 17:57 06:15 Hgb 9.2 L Blood Type O Positive Antibody Screen NEGATIVE Crossmatch (AHG) See Detail OB - DS: Summary Hospital Course Hospital Course: The patient is a 32 year old G 5 P3023 at 39 weeks gestation that was admitted to the Center on 09/10/22 for repeat section and bilateral salpingectomy. Her was complicated by chronic hypertension. She had an complicated delivery due to uterine atony resulting in hemorrhage. She had a hgb drop from 11.4 to 6.3 and received 2u of pRBC with appropriate rise to 9.2. She delivered a viable male/female infant. She is breast feeding. We discussed holding her labetalol as her blood pressure has been hypotensive - normotensive range. Overnight patient had no complaints. Her pain is well controlled on oral pain medications. She is tolerating a regular diet. She has passed flatus. She is ambulating without difficulty. Lochia is scant. She is urinating without [place]. Patient denies chest pain, SOB, n/v, headache, RUQ pain, vision changes, dizziness. Postoperative Review: - Admitted for: Schedule surgery - Surgical procedure: repeat c/s + salpingectomy - Skin incision: Pfannenstiel - Closure: sutures Acute blood loss anemia - Estimated blood loss: 975 mL - Intraoperative Complications: Uterine atony - Urine output: adequate - Preop H/H: 11.4 - Postop H/H: 6.3 - S/p 2 u of pRBC wtih appropriate rise to 9.2 - Patient is currently asymptomatic - Will Prescribe iron supplementation Chronic HTN - On labetalol 200mg BID, decrease to 200mg am and 100mg pm on - Baseline proteinuria:? 408 mg / 24 hours in first trimester.? Baseline P/C ratio: 0.20 - Labs 08/24/2022:? Protein to creatinine ratio 0.50, otherwise normal labs.? To repeat 24 hour urine - Labetalol held the entirety of hospitalization due to low BP /2 to anemia - BP at discharge 110/73. Will hold labetalol and reevaluate at 1 week BP check. Patient to continue her BP log - PreE warnings given Postoperative care: - Diet: Advance as tolerated - Fluid: Encourage oral intake - Activity: Encourage ambulation and incentive spirometry - Pain: Oxy, tylenol and Ibuprofen - DVT prophylaxis: SCDs and TEDs when not ambulating Discharge Planning - Contraception: Salpingectomy - Follow up in 5-7 days for incision check and BP check in clinic - Follow Up: follow-up in 2 and 6 weeks in clinic Baby's Status - Fetus: 8, 9, 7lb 13oz, female - Location: bedside Peripartum Data Procedures: Procedures Operation Date: 09/10/22 09:00 Actual Procedure Side Surgeon p Repeat Section, Salpingectomy Nicole Mccarthy MD Infant Gender: Female Time Spent with Patient Time attestation: Total time spent providing and/or coordinating discharge services: Discharge Plan Discharge Disposition: Home, Self-Care Date of Admission: 09/10/22 05:06 Primary Care Provider: Provider,Not a Local Condition: Stable Anticipated Discharge Date/Time: 09/12/22 19:00 Discharge Medications: New docusate sodium 100 mg Capsule 100 mg PO BID PRN (Reason: constipation) Qty: 100 0RF ibuprofen 600 mg Tablet 600 mg PO Q6H PRN (Reason: Pain) Qty: 30 0RF oxycodone 5 mg Tablet 5 mg PO 3XD PRN (Reason: Pain) Qty: 21 0RF ferrous sulfate 134 mg (27 mg iron) tablet 134 mg PO DAILY Qty: 30 1RF senna 8.6 mg capsule 8.6 mg PO DAILY Qty: 30 0RF Continued DHA 200 mg capsule 1 mg PO .QD triamcinolone acetonide 0.1 % cream 1 applic topical TID Qty: 30 3RF ferrous sulfate 325 mg (65 mg iron) tablet 325 mg PO QDAY acetaminophen [Tylenol Extra Strength] 500 mg tablet 1,000 mg PO QID PRN Discontinued labetalol 300 mg tablet 300 mg PO BID Qty: 60 0RF Discharge Orders: Discharge Order (Routine); Ordered 09/12/22 Ordered By: Pili Wheeler Patient Education: (DC) Additional Instructions: ACTIVITY RESTRICTIONS: Nothing vaginally for 6 weeks: no tampons/intercourse No driving while taking narcotic pain medication during the day. 1-2 weeks. Okay to be the passenger anytime. Lifting restriction: Maximum of 20 pounds for 6 weeks. High impact or core exercises: 6 weeks. Submerge the incision in water (bath/pool/baca): 2 weeks. Off of work/school for a minimum of 8 weeks NO RESTRICTIONS for: Walking Going up/down stairs Showering Symptoms to report to doctor: -Bleeding that saturates more than one pad per hour ?-Passing clots larger than the size of a golf ball ?-Pain not relieved by prescribed medication ?-Fever above 100.4 degrees Fahrenheit ?-A foul vaginal odor ?-Difficulty in emotions, mood and functions ?-Thoughts of hurting yourself and/or ?-Painful, reddened area in your breast ?-Any drainage, redness or tenderness in your IV/epidural site ?-Severe headache that doesn't improve after taking medications ?-Changes in vision, including temporary loss of vision, blurred vision, and/or light sensitivity ?-Upper abdominal pain (usually under ribs on the right side) ?-Decrease in urination or painful, frequent urinating ?-Chest pain ?-Shortness of breath ?-Tenderness or pain with redness and/swelling in the calf(s) of your leg Follow-up: [facility]. [facility] to remove your dressing: incision check, and BP check. 2. A 6 week visit for an annual physical exam. consultation services are available to all mothers and babies for the first year after delivery.? To make an appointment, please call [phone]. Discharge Diet: Regular Follow Up Appointments: [facility] [Provider Group] Provider,Not a Local [Primary Care Provider] - Forms: MyHealth Info Instructions Discharge Comments: 1 week blood pressure check (can be nurse visit)
== END 2022-09-12 11:25 | disposition home or self-care (01) | DRG 784 ==
PROVIDERS: Advanced Practice Midwife; Admitting Provider Obstetrics & Gynecology; Visit Provider Obstetrics & Gynecology
PROC: 10D00Z1 Extraction of Products of Conception, Low, Open Approach (ICD-10-PCS; CPT 59514; principal; 2022-09-10 09:00)
DX: O34.211 Maternal care for low transverse scar from previous cesarean delivery (principal); D62 Acute posthemorrhagic anemia; O10.92 Unspecified pre-existing hypertension complicating childbirth; O72.1 Other immediate postpartum hemorrhage; O90.81 Anemia of the puerperium; R42 Dizziness and giddiness; K76.0 Fatty (change of) liver, not elsewhere classified; O99.214 Obesity complicating childbirth; Z30.2 Encounter for sterilization; Z3A.39 39 weeks gestation of pregnancy; Z37.0 Single live birth
CPT/HCPCS: 01961; 36415; 36430; 76942; 85018; 85025; 86850; 86900; 86901; 86922; 87635; 88302; 88307; A9270; C9290; J0690; J1885; J2274; J2405; J2590; J3490; J7120; P9016

== ENCOUNTER 2022-10-19 08:31 | Outpatient (CLI) | payer OTHER, SELFPAY ==
--- NOTE | 2022-10-19 17:15 | W.PM.LAC.MC ---
Consult Note - Mom Date of Visit Date of visit: 10/19/22 insurance consultant: Scarlet Salmon Visit Code: Visit Patient's Information Phone number: [phone] : 5 Para: 3 Allergies No Known Allergies Allergy (Unknown, Verified 10/27/22 13:25) Mother's Medical History: Medical History (Updated 09/12/22 @ 09:52 by Pili Wheeler MD) Chronic hypertension affecting ?O10.919 - Unspecified pre-existing hypertension complicating , unspecified trimester (ICD-10) Type of Contraception: salpingectomy Work Plans: Returns to work at [employer] in November Delivery Information Delivery type: Repeat Section Weeks Gestation: 39.0 Gestational Age: AGA Weight: 3.545 kg Discharge Weight: 3.226 kg Baby's Information Baby's Age at Visit: 5 weeks Baby's Provider or Clinic: Dr. Mccoy Reason for Consult Reason for Consult: difficulty latching Past Experience Past Experience: Yes (nursed her first child about 6 mo and her second about 12 mo) Current Frequency of Day Feedings: about every 2 - 3 hours Frequency of Night Feedings: wakes 1 - 2 times at night to nurse Both Breasts: Yes Suck: not aggressive Latch: shallow Length of Time: about 15 mintues Pumping Pumping: Yes (mom pumps once/day) Quantity Pumped: 4 oz total Supplementing EMB Supplement: Yes (baby gets a bottle of EBM occasionally) Formula Supplement: No Baby Elimination Number of Wet Diapers a Day: with at least every other feeding Number of BM a Day: 1 - 2 times/day Breast/Nipple Condition Breast Information: WNL Maternal Nipple Condition - Left: Common Nipple Maternal Nipple Condition - Right: Common Nipple Sore Nipples: Yes (left) Onsite Pre-Feed weight: 4.402 kg Post-Feed weight: 4.444 kg Milk Transferred (mL): 42 Assessments/Interventions Assessments/Interventions: Assessments/Interventions: Met with mom and this now 5 week old ex- term AGA baby for consult.? Baby is nursing every 2 - 3 hours during the day and once overnight, mom reports the latch is painful (especially on the left) and it feels like baby is biting her.? Mom is pumping once/day and gets about 4 oz total each time.? Baby is occasionally given a bottle and will take 1.5 - 2 oz. Breasts WNL- symmetrical with rounded lower quadrants, intramammary distance is < 1.5 inches.? Nipples are everted and don't flatten or retract on compression; no damage noted. Baby has gained 37 grams/day since her last visit and plots at about the 60th percentile on the growth chart.? Mom denies any caput/cephalohematoma at delivery.? Also states baby has equal ROM when turning her head and moving her extremities.? Palate is a little high and her upper frenulum is tight with her upper lip being a little difficult to flange and her gums jac; she also has a suck blister on her upper lip.? She has a strong suck on a finger.? The tongue easily extends past the gum line and has good lateral movement.? The lower frenulum is WNL. Baby is very content, mom reports she nursed at about 07:30.? Baby isn't showing feeding cues despite attempts to bother her.? Mom latched her in the cradle hold but she didn't wait for baby to open wide and the latch was shallow.? When she was helped with the football position and instructed to point her nipple to baby's nose and wait for baby to open wider she initially had more success but baby wasn't aggressively suckling and slipped to a shallow latch after only a few minutes.? As mom reported baby seems to bite her she was shown jaw massage which worked to help baby open wider when mom attempted to latch her on the right side, but she quickly slipped from a deeper latch to a more shallow one and was non-nutritively suckling.? After about a 30 minute feeding attempt she was weighed and had transferred 42 ml. Reassured mom that although baby didn't take much at this feeding, it's probably b/c she ate shortly before the visit and her weight gain overall is good. Plan: 1. Continue to nurse baby ALD, offering both sides each time.? Suggested mom try the jaw massage before nursing, the football hold, and point her nipple to baby's nose. 2. Continue her daily pumping. 3. Continue to offer a bottle/day or every few days. 4. Gave handout on local body work therapists as an option/supplement to the massage she does.? 5. As there are no appointments until 11/06, will f/u then for another pre and post feeding weight.? Will suggest Baby Talk and could consider dental referral if no improvement. Meds Home Medications and Allergies Home Medications Medication Instructions Recorded Confirmed Type docosahexaenoic acid 200 mg 1 mg PO .QD 02/12/22 10/27/22 History capsule ( DHA) acetaminophen 500 mg tablet 1,000 mg PO QID PRN 07/30/22 10/27/22 History (Tylenol Extra Strength) labetalol 200 mg tablet 200 mg PO BID 10/27/22 10/27/22 History Allergies Allergy/AdvReac Type Severity Reaction Status Date / Time No Known Allergies Allergy Unknown Verified 10/27/22 13:25
== END 2022-10-19 08:32 | disposition home or self-care (01) ==
PROVIDERS: PCP Family Medicine; Visit Provider Obstetrics & Gynecology
DX: Z39.1 Encounter for care and examination of lactating mother (principal)
CPT/HCPCS: 99211

== ENCOUNTER 2023-05-28 14:33 | Outpatient (CLI) | payer OTHER, SELFPAY | END 2023-05-28 14:34 | disposition home or self-care (01) | PROVIDERS: PCP Family Medicine; Visit Provider Family Medicine | DX: R53.83 Other fatigue (principal); Z13.220 Encounter for screening for lipoid disorders; R73.09 Other abnormal glucose; I10 Essential (primary) hypertension | CPT/HCPCS: 80053; 80061; 84443 ==

== ENCOUNTER 2023-09-01 14:54 | Outpatient (CLI) | payer OTHER, SELFPAY | END 2023-09-01 14:55 | disposition home or self-care (01) | LOC: NFLDREF 15:24 | PROVIDERS: PCP Family Medicine; Visit Provider Family Medicine | DX: I10 Essential (primary) hypertension (principal) | CPT/HCPCS: 80048 ==

== ENCOUNTER 2024-09-04 07:56 | Outpatient (CLI) | payer OTHER, SELFPAY | END 2024-09-04 07:57 | disposition home or self-care (01) | LOC: NFLDREF 09-05 07:43 | PROVIDERS: PCP Family Medicine; Referring Provider Family Medicine; Visit Provider Family Medicine | DX: I10 Essential (primary) hypertension (principal); K76.0 Fatty (change of) liver, not elsewhere classified; R73.9 Hyperglycemia, unspecified; E78.5 Hyperlipidemia, unspecified | CPT/HCPCS: 80053; 80061 ==

== ENCOUNTER 2024-09-05 08:02 | Outpatient (CLI) | payer OTHER, SELFPAY ==
[2024-09-06 16:57] LABS: HPV Source Cervical/Vag; HPV, High Risk by TMA Not Detected
== END 2024-09-05 08:03 | disposition home or self-care (01) ==
PROVIDERS: PCP Family Medicine; Visit Provider Family Medicine
DX: Z12.4 Encounter for screening for malignant neoplasm of cervix (principal)
CPT/HCPCS: 87624; 87625; 88141; 88142